=== PATIENT | male | born 1955 | race Caucasian/White ===

== ENCOUNTER 2020-02-10 08:48 | Inpatient (IN) | payer OTHER ==
[~2020-02-10] VITALS: Ht 177.8 cm; Wt 93.9 kg
[2020-02-10 09:04] VITALS: BP 168/111
[2020-02-10] MEDS ORDERED: NORVASC 2.5 MG2.5 M1 PO (09:08)
[2020-02-10] MEDS ORDERED: LISINOPRIL2.5 MG PO (09:08)
[2020-02-10] MEDS ORDERED: ZETIA10 MG PO ×2 (09:09→15:27)
[2020-02-10] MEDS ORDERED: SOTALOL 120 MG120 M1 PO ×2 (09:09→15:26)
[2020-02-10] MEDS ORDERED: SIMVASTATIN80 MG PO (09:09)
[2020-02-10] MEDS ORDERED: ZOFRAN ODT4 MG DISSOLVE (09:09)
[2020-02-10] MEDS ORDERED: FAMOTIDINE20 MG PO (09:09)
[2020-02-10 09:31] LABS: ABSOLUTE BASOPHILS 0.1 thou/uL (0.0-0.2); ABSOLUTE EOSINOPHILS 0.1 thou/uL (0.0-0.7); ABSOLUTE LYMPHOCYTES 2.1 thou/uL (0.8-5.3); ABSOLUTE MONOCYTES 0.6 thou/uL (0.0-1.2); ABSOLUTE NEUTROPHILS 4.9 thou/uL (1.6-8.1); BASOPHILS 1.1 %; EOSINOPHILS 1.1 %; HEMATOCRIT 46.4 % (42.0-52.0); HEMOGLOBIN 15.6 gm/dL (14.0-18.0); LYMPHOCYTES 27.3 %; MCH 30.5 pg (26.0-34.0); MCHC 33.6 g/dL (28.0-37.0); MCV 90.7 fL (80.0-100.0); MONOCYTES 7.6 %; MPV 7.3 fl. (7.2-11.1); NUCLEATED RBCS 0 /100WBC; PLATELET COUNT* 239 thou/uL (150-400); POLYS 62.9 %; RBC 5.12 mil/uL (4.50-6.00); RDW-CV 12.8 % (10.5-14.5); WBC 7.7 thou/uL (4.0-11.0)
[2020-02-10 09:49] LABS: CALCIUM 9.3 mg/dL (8.5-10.1); CREATININE 1.2 mg/dL (0.6-1.3); POTASSIUM 3.6 mmol/L (3.5-5.1)
[2020-02-10 09:53] LABS: ALBUMIN 4.5 g/dL (3.4-5.0); MAGNESIUM 2.6 mg/dL (1.8-2.4); TOTAL PROTEIN 8.8 g/dL (6.4-8.2)
--- NOTE | 2020-02-10 14:30 | EKG ---
[place] [address] ELECTROCARDIOGRAM REPORT Name: TIGRE NAVARRO Room: 229-P ADM IN M.R.#: [id number] Admission: 02/10/20 Attend Phys: Scott Rudd Discharge: Date of : 57 Date of Service: 02/10/20906 Report #: [id number] THIS REPORT FOR: //name// [facility] ED Test Date: 2020-02-10 Test Time: 09:07:08 Pat Name: TIGRE NAVARRO Department: Room: [facility] Gender: M Transcription Typist: CCD : [id number] Requested By: Sony Lin Order Number: [id number] MD: Logan Redd Measurements Intervals [place] Rate: 107 P: NM: QRS: -29 QRSD: 136 T: 40 QT: 395 QTc: 527 Interpretive Statements Atrial fibrillation Right bundle branch block Left ventricular hypertrophy with repolarization changes left axis No previous ECG available for comparison Electronically Signed On 02-10-2020 14:30:28 CDT by Logan Redd [email or web address] <ELECTRONICALLY SIGNED> By: Logan Redd MD, FACC 02/10/20 1430 0907 [id number] Logan Redd MD, [facility] /EPI
[2020-02-10 14:38] VITALS: BP 106/62
[2020-02-10 15:07] VITALS: BP 96/62
[2020-02-10] MEDS ORDERED: ROSUVASTATIN CA10 MG PO (15:28)
[2020-02-10] MEDS ORDERED: B-125000 MC1 PO (15:31)
[2020-02-10] MEDS ORDERED: BENADRYL25 MG PO (15:32)
[2020-02-10] MEDS ORDERED: RED YEAST RICE600 M1 PO (15:36)
[2020-02-10] MEDS ORDERED: ONE DAILY WOME1 EAC3 PO (15:38)
[2020-02-10 16:00] VITALS: BP 111/62
[2020-02-10 20:00] VITALS: BP 100/62
[2020-02-11 00:07] VITALS: BP 126/72
[2020-02-11 02:06] LABS: GLYCOHEMOGLOBIN (HGB A1C) 6.2 % (4.8-5.6)
[2020-02-11 04:27] VITALS: BP 105/75
[2020-02-11 07:45] VITALS: BP 132/92
[2020-02-11 11:39] VITALS: BP 110/74
--- NOTE | 2020-02-11 12:43 | CARDNUC ---
[place] [address] CARDIAC NUCLEAR IMAGING REPORT Name: TIGRE NAVARRO Room: [address] IN [facility].#: [id number] Admission: 02/10/20 Attend Phys: Scott Rudd Discharge: Date of : 57 Date of Service: 02/11/20 1243 Report #: [id number] THIS REPORT FOR: cc: Carlie Epstein Maggie M. DO Liston,Nawaf Talley MD [facility] ~ APPROVED REPORT Imaging Protocol: Stress Tc-99m/Rest Tc-99m 1 day Study performed: 02/10/2020 14:59:00 Indication: Chest pain, left arm pain, AFib, RVR, Palpitations, Nausea. Patient Location: In-Patient Room #: 229 Stress Tech: Marietta Martinez Stress Nurse: Shiela Neri RN Ht: 5 ft 10 in Wt: 220 lbs BSA: 2.17 m2 BMI: 31.56 Medical History Medical History: Angina, Arrhythmia, Atrial Fibrillation, CAD non obstructive, Borderline DM, HTN, Hyperlipidemia, RBBB, Ablation, RVR, PVC's, elevated calcium score, ABD pain/GI pain, nausea, Palpitations, LVH, Groin pain, Anxiety, Spinal Stenosis, knee surgery. Medications: Diltiazem/Cardizem, Home meds include Amlodipine, Zetia, Lisinopril, Red Yeast Rice, Rosuvastatin, Sotalol. Allergies: No known drug allergies Cardiac Risk Factors: Age, Borderline DM, HTN, Hyperlipidemia, AFib, RVR, elevated calcium score, RBBB, LVH, PVC's. Previous Cardiac Procedures: Ablation for AFib. Pretest Chest Pain Characteristics: No chest pain Exercise History: Indeterminate Physical Disabilities: AFib, Spinal Stenosis, Knee pain. Meds Held (24 hrs): Sotalol, Amlodipine - All home medications. Resting Data Rest SPECT myocardial perfusion imaging was performed in supine position 30 minutes following the intravenous injection of 10.3 mCi of Tc-99m Sestamibi. Time of rest injection: 07:50 [place] [address] CARDIAC NUCLEAR IMAGING REPORT Name: TIGRE NAVARRO Room: [address]#: [id number] Admission: 02/10/20 Attend Phys: Scott Rudd Discharge: Date of : 57 Date of Service: 02/11/20 1243 Report #: [id number] The images were gated to evaluate regional wall motion and calculate left ventricular ejection fraction. Administration Route: IV Administration Site: Right Arm Pharmacologic Stress Pharmacologic stress test was performed by injecting Regadenoson 0.4 mg IV push over 10-15 seconds immediately followed by the intravenous injection of 35.2 mCi of Tc-99m Sestamibi. Time of stress injection: 09:30 Administration Route: IV Administration Site: Right Arm Heart Rate at time of stress injection: 164 bpm. Gated Stress SPECT was performed 40 minutes after stress injection. The images were gated to evaluate regional wall motion and calculate left ventricular ejection fraction. Prone imaging was performed. Stress Test Details Stress Test: Pharmacologic stress testing performed using 0.4 mg of regadenoson per 5 mL given IV over 10 seconds. Reason for pharmacologic stress test: AFib, Spinal Stenosis, Knee pain.. HR Max Heart Rate (APMHR): 157 bpm Resting HR: 118 bpm Target HR (85% APMHR): 133 bpm Max HR Achieved: 164 bpm % of APMHR: 104 Recovery HR: 140 bpm BP Resting BP: 129/101 mmHg Max BP: 135/85 mmHg Recovery BP: 119/77 mmHg ECG Resting ECG: Atrial fibrillation with rapid ventricular response rate, right bundle branch block Stress ECG: Atrial fibrillation with rapid ventricular response rate, right bundle branch block ST Change: None Recovery ECG: Atrial fibrillation with rapid ventricular response rate, right bundle branch block Recovery ST Change: [place] [address] CARDIAC NUCLEAR IMAGING REPORT Name: TIGRE NAVARRO Room: [address] IN [facility]#: [id number] Admission: 02/10/20 Attend Phys: Scott Rudd Discharge: Date of : 57 Date of Service: 02/11/20 1243 Report #: [id number] Reason for Termination: Completed protocol Stress Symptoms: Warmth/Flushed, Heaviness in LE, Nausea, SOA. Exercise duration: 00 min 00 sec Exercise capacity: 1.00 METs The patient tolerated Lexiscan walking protocol without significant cardiac symptoms. Nurse Comments A 64 year old male inpatient presented with nausea and AFib for a sitting Lexiscan r/t chest pain, left arm pain, AFib, RVR, PVC's, Palpitations, nausea, ABD pain/GI pain and an elevated calcium score. Test well tolerated. Recovery unremarkable. Patient was stable and stated he felt better when escorted via wheelchair to Nuclear Medicine for imaging. Stress ECG Conclusion Baseline twelve-lead EKG shows atrial fibrillation with a rapid ventricular response rate. There is a right bundle branch block. There were no significant ST segment abnormalities noted. EKGs obtained during and post Lexiscan walking protocol show atrial fibrillation with rapid ventricular response rate without significant ST segment changes when compared to baseline. Study Quality Study: Good Artifact: Mild Diaphragmatic artifact Study Data At rest, the left ventricular ejection fraction was 46%.. Post stress, the left ventricular ejection was 46%.. TID = 0.92. Perfusion Perfusion images obtained in the supine position at rest and post walking Lexiscan stress show photopenia in the inferior wall that resolves with post stress prone imaging. There is focal apical thinning. No reversible defects are identified. Wall Motion Mild left ventricular systolic dysfunction noted. There is global hypokinesis and septal wall motion abnormality likely due to underlying bundle branch block. Nuclear Conclusion ECG Findings: [place] [address] CARDIAC NUCLEAR IMAGING REPORT Name: TIGRE NAVARRO Room: [address] IN M.R.#: [id number] Admission: 02/10/20 Attend Phys: Scott Rudd Discharge: Date of : 57 Date of Service: 02/11/20 1243 Report #: [id number] Clinical Findings: negative for ischemia Nuclear Findings: negative for ischemia Exercise Capacity: not assessed Left Ventricular Function: abnormal Perfusion study showed no reversible defects to suggest ischemia. There is mild global LV systolic dysfunction. This is not a high risk study. <Conclusion> Baseline twelve-lead EKG shows atrial fibrillation with a rapid ventricular response rate. There is a right bundle branch block. There were no significant ST segment abnormalities noted. EKGs obtained during and post Lexiscan walking protocol show atrial fibrillation with rapid ventricular response rate without significant ST segment changes when compared to baseline. <ELECTRONICALLY SIGNED> By: Nawaf Blanco MD, FACC 02/11/20 1243 1243 124 Nawaf Blanco MD, FACC /INF
--- NOTE | 2020-02-11 14:15 | 2DMMODE ---
[place] [address] 2 D/M-MODE ECHOCARDIOGRAM Name: TIGRE NAVARRO Room: [address] ADM IN M.R.#: [id number] Admission: 02/10/20 Attend Phys: Scott Rudd Discharge: Date of : 57 Date of Service: 02/11/20 1415 Report #: [id number] THIS REPORT FOR: cc: Carlie Epstein Maggie M. DO Blick,Logan Ely MD [facility] ~ APPROVED REPORT Study performed: 02/11/2020 12:53:44 EXAM: Comprehensive 2D, Doppler, and color-flow Echocardiogram Patient Location: Bedside BSA: 2.12 HR: 60 bpm BP: 105/75 mmHg Other Information Study Quality: Adequate Indications Atrial Fibrillation 2D Dimensions IVSd: 13.07 (7-11mm) LVOT Diam: 22.23 (18-24mm) LVDd: 53.89 mm PWd: 12.20 (7-11mm) Ascending Ao: 34.67 (22-36mm) LVDs: 36.69 (25-40mm) Aortic Root: 33.49 mm Volumes Left Atrial Volume (Systole) LA ESV Index: 26.50 mL/m2 Aortic Valve AoV Peak Malvin.: 1.13 m/s AO Peak Gr.: 5.10 mmHg LVOT Max P.04 mmHg AO Mean Gr.: 2.82 mmHg LVOT Mean P.49 mmHg LVOT Max V: 1.00 m/s AO V2 VTI: 20.62 cm LVOT Mean V: 0.54 m/s SAMSON (VTI): 3.78 cm2 LVOT V1 VTI: 20.08 cm Mitral Valve E/A Ratio: 1.28 [place] [address] 2 D/M-MODE ECHOCARDIOGRAM Name: TIGRE NAVARRO Room: [address] IN .R.#: [id number] Admission: 02/10/20 Attend Phys: Scott Rudd Discharge: Date of : 57 Date of Service: 02/11/20 1415 Report #: [id number] MV Decel. Time: 219.63 ms MV E Max Malvin.: 0.53 m/s MV PHT: 63.69 ms MVA (PHT): 3.45 cm2 TDI E/Lateral E': 3.12 E/Medial E': 5.89 Medial E' Malvin.: 0.09 m/s Lateral E' Malvin.: 0.17 m/s Pulmonary Valve PV Peak Malvin.: 0.83 m/s PV Peak Gr.: 2.73 mmHg Tricuspid Valve RAP Estimate: 5.00 mmHg TR Peak Gr.: 22.37 mmHg RVSP: 27.37 mmHg PA Pressure: 27.37 mmHg Left Ventricle The left ventricle is normal size. Mild concentric left ventricular hypertrophy. Left ventricular systolic function is normal. The left ventricular ejection fraction is within the normal range. LVEF is 55-60%. Right Ventricle Right ventricle is borderline dilated. The right ventricular systolic function is normal. Atria The left atrium size is normal. The right atrium size is normal. Aortic Valve The Aortic valve is sclerotic. No aortic regurgitation is present. There is no aortic valvular stenosis. Mitral Valve The mitral valve is normal in structure. Mild mitral regurgitation. No evidence of mitral valve stenosis. Tricuspid Valve The tricuspid valve is normal in structure. Trace tricuspid regurgitation. estimated pa pressure 45 mm Hg Pulmonic Valve The pulmonary valve is normal in structure. [place] [address] 2 D/M-MODE ECHOCARDIOGRAM Name: TIGRE NAVARRO Room: [address] IN [facility]#: [id number] Admission: 02/10/20 Attend Phys: Scott Rudd Discharge: Date of : 57 Date of Service: 02/11/20 1415 Report #: [id number] valvular regurgitation. Great Vessels The aortic root is normal in size. IVC is normal in size and collapses >50% with inspiration. Pericardium There is no pericardial effusion. <Conclusion> Mild concentric left ventricular hypertrophy. LVEF is 55-60%. The Aortic valve is sclerotic. Mild mitral regurgitation. Trace tricuspid regurgitation. estimated pa pressure 45 mm Hg <ELECTRONICALLY SIGNED> By: Logan Redd MD, FACC 02/11/201414 14 14 Logan Redd MD, FACC /INF
[2020-02-11 16:00] VITALS: BP 110/58
[2020-02-11 20:00] VITALS: BP 149/67
[2020-02-12 00:41] VITALS: BP 121/77
[2020-02-12 04:22] VITALS: BP 110/55
[2020-02-12 08:00] VITALS: BP 133/75
[2020-02-12] MEDS ORDERED: LORAZEPAM 0.50.5 MG PO (08:30)
[2020-02-12] MEDS ORDERED: CARDIZEM CD120 MG PO (08:30)
[2020-02-12] MEDS ORDERED: XARELTO10 MG PO (08:30)
[2020-02-12] MEDS ORDERED: LISINOPRIL2.5 MG PO (09:56)
[2020-02-12 10:26] LABS: CREATININE 1.2 mg/dL (0.6-1.3); MAGNESIUM 2.5 mg/dL (1.8-2.4); POTASSIUM 3.6 mmol/L (3.5-5.1)
[2020-02-12 12:00] VITALS: BP 118/67
[2020-02-12 16:43] VITALS: BP 133/75
--- NOTE | 2020-02-12 17:30 | CON ---
[facility] [address] [place] [address] CONSULTATION Name: TIGRE NAVARRO Room: [address] ADM IN M.R.#: [id number] Admission: 02/10/20 Attend Phys: Al Patricia Discharge: Date of : 57 Report #: [id number] THIS REPORT FOR: //name// cc: Carlie Epstein Maggie M. DO ~ THIS REPORT FOR: //name// DATE OF SERVICE: 02/11/2020 HISTORY OF PRESENT ILLNESS: This is a pleasant 64-year-old male with past medical history significant for hypertension, hyperlipidemia, prediabetes, and atrial fibrillation who presented with worsening nausea. The patient has been diagnosed with atrial fibrillation with rapid ventricular response. The GI service has been consulted for evaluation of nausea. The patient reports nausea daily, worse when he is anxious, sometimes it is worse with food. Denies any abdominal pain, vomiting, hematemesis, hematochezia, weight loss. The patient has never had an EGD done before. PAST MEDICAL HISTORY: Atrial fibrillation, hypertension, prediabetes, hyperlipidemia. PAST SURGICAL HISTORY: He has had ablation, knee surgery in 2013, hemorrhoidectomy, tonsillectomy. SOCIAL HISTORY: The patient denies smoking, alcohol or recreational drug use. FAMILY HISTORY: Unknown because he is adopted. REVIEW OF SYSTEMS: Comprehensive 10-point review of systems is negative except for what was mentioned in the HPI. PHYSICAL EXAMINATION: GENERAL: The patient is alert, awake, oriented x 3. HEENT: Pupils are equal, round, reactive to light and accommodation. Mucous membranes are moist. There is no congestion. LUNGS: Clear to auscultation bilaterally. CARDIOVASCULAR: Irregularly irregular. ABDOMEN: Soft. There is no distention, guarding or rigidity. EXTREMITIES: Warm, well perfused. There is no edema. SKIN: Warm and dry. LABORATORY DATA: Hemoglobin 15.6, hematocrit 46.4, platelet count 239, WBC count 7.7. Sodium 137, potassium 3.6, chloride 99, bicarbonate 27, BUN 17, creatinine 1.2. Hemoglobin A1c is 6.2. IMAGING: Abdomen and pelvis CT demonstrates [place] [address] CONSULTATION Name: TIGRE NAVARRO Room: [address] IN [facility]#: [id number] Admission: 02/10/20 Attend Phys: Al Patricia Discharge: Date of : 57 Report #: [id number] ASSESSMENT AND PLAN: A pleasant 64-year-old gentleman with history of atrial fibrillation who is presenting for evaluation of nausea. The patient had a stress test performed today for his nausea. We would recommend Zofran 8 mg t.i.d. p.r.n. We would avoid anticholinergics as they have the ability to increase heart rate. No further interventions are recommended at this time. Thank you for this consultation. <ELECTRONICALLY SIGNED> By: George Motta MD 02/12/20 1730 1128 [id number] Motta MD /nt
== END 2020-02-12 17:00 | disposition home or self-care (01) | DRG 309 ==
LOC: M.ERS 08:48 → M.2W 11:02 → M.TBA-ER 11:02 → M.2W 14:15
PROVIDERS: Emergency Medicine Emergency Medical Services; ADMIT Internal Medicine; ATTEND Internal Medicine
PROC: 5A09357 Assistance with Respiratory Ventilation, Less than 24 Consecutive Hours, Continuous Positive Airway Pressure (ICD-10-PCS; principal; 2020-02-10)
DX: I48.0 Paroxysmal atrial fibrillation (principal); D68.59 Other primary thrombophilia; I10 Essential (primary) hypertension; E78.5 Hyperlipidemia, unspecified; R73.03 Prediabetes; G62.9 Polyneuropathy, unspecified; E05.90 Thyrotoxicosis, unspecified without thyrotoxic crisis or storm; I25.10 Atherosclerotic heart disease of native coronary artery without angina pectoris; K76.0 Fatty (change of) liver, not elsewhere classified; K64.9 Unspecified hemorrhoids; R07.9 Chest pain, unspecified; F41.9 Anxiety disorder, unspecified; I49.3 Ventricular premature depolarization; Z20.828 Contact with and (suspected) exposure to other viral communicable diseases; Z79.899 Other long term (current) drug therapy; Z23 Encounter for immunization

== ENCOUNTER 2020-03-22 08:07 | Emergency (ER) | payer OTHER ==
[~2020-03-22] VITALS: Ht 177.8 cm; Wt 95.3 kg
[~2020-03-22 08:07] MED LIST: B-125000 MC1 PO; BENADRYL25 MG PO; CARDIZEM CD120 MG PO; FAMOTIDINE20 MG PO; LISINOPRIL2.5 MG PO; LORAZEPAM 0.50.5 MG PO; NORVASC 2.5 MG2.5 M1 PO; ONE DAILY WOME1 EAC3 PO; RED YEAST RICE600 M1 PO; ROSUVASTATIN CA10 MG PO; SIMVASTATIN80 MG PO; SOTALOL 120 MG120 M1 PO; XARELTO10 MG PO; ZETIA10 MG PO; ZOFRAN ODT4 MG DISSOLVE
[2020-03-22] MEDS ORDERED: XARELTO20 MG PO (08:21)
[2020-03-22] MEDS ORDERED: LISINOPRIL20 MG PO (08:21)
[2020-03-22] MEDS ORDERED: NORVASC5 M1 PO (08:21)
[2020-03-22 08:49] LABS: URINE BILIRUBIN NEGATIVE (Negative); URINE BLOOD 2+ (Negative); URINE CLARITY CLEAR; URINE COLOR YELLOW; URINE GLUCOSE-RANDOM NEGATIVE (Negative); URINE KETONES NEGATIVE (Negative); URINE LEUKOCYTES-REFLEX NEGATIVE (Negative); URINE NITRITE-REFLEX NEGATIVE (Negative); URINE PROTEIN NEGATIVE (Negative); URINE UROBILINOGEN 0.2 E.U./dl (0.2-1.0)
[2020-03-22 08:52] LABS: ABSOLUTE BASOPHILS 0.1 thou/uL (0.0-0.2); ABSOLUTE EOSINOPHILS 0.1 thou/uL (0.0-0.7); ABSOLUTE LYMPHOCYTES 1.8 thou/uL (0.8-5.3); ABSOLUTE MONOCYTES 0.6 thou/uL (0.0-1.2); ABSOLUTE NEUTROPHILS 2.9 thou/uL (1.6-8.1); BASOPHILS 1.3 %; EOSINOPHILS 1.2 %; HEMATOCRIT 42.9 % (42.0-52.0); HEMOGLOBIN 14.7 gm/dL (14.0-18.0); LYMPHOCYTES 33.5 %; MCH 30.5 pg (26.0-34.0); MCHC 34.3 g/dL (28.0-37.0); MCV 88.8 fL (80.0-100.0); MONOCYTES 10.8 %; NUCLEATED RBCS 0 /100WBC; PLATELET COUNT* 225 thou/uL (150-400); POLYS 53.2 %; RBC 4.83 mil/uL (4.50-6.00); RDW-CV 12.5 % (10.5-14.5); WBC 5.5 thou/uL (4.0-11.0)
[2020-03-22] MEDS ORDERED: FLEXERIL PO (08:54)
[2020-03-22] MEDS ORDERED: NORCO 5-325 TA1 EAC2 PO (08:54)
[2020-03-22 09:00] LABS: CALCIUM 8.6 mg/dL (8.5-10.1); POTASSIUM 3.5 mmol/L (3.5-5.1)
[2020-03-22 09:05] LABS: ALBUMIN 3.8 g/dL (3.4-5.0); TOTAL BILIRUBIN 0.5 mg/dL (<0.1-1.0); TOTAL PROTEIN 7.9 g/dL (6.4-8.2)
[2020-03-22 09:05] LABS: CRYSTALS None Seen /LPF (None Seen); MUCUS 4-6 Moderate strn/LPF (None Seen); SQUAMOUS NONE SEEN /LPF (0-3)
[2020-03-22 09:06] LABS: BACTERIA-REFLEX None Seen /HPF (None Seen); CASTS None Seen /LPF (None Seen)
[2020-03-22 09:07] LABS: URINE RBC 0-2 Rare /HPF (0-2); URINE WBC-REFLEX None Seen /HPF (0-5)
[2020-03-22] MEDS ORDERED: CIPROFLOXACIN500 M1 PO (09:24)
[2020-03-22] MEDS ORDERED: FLOMAX0.4 MG PO (09:25)
[2020-03-22 09:38] VITALS: BP 144/90
== END 2020-03-22 09:38 | disposition home or self-care (01) ==
LOC: M.ERS 08:07
PROVIDERS: Family Medicine
DX: N41.9 Inflammatory disease of prostate, unspecified (principal); I48.91 Unspecified atrial fibrillation; I10 Essential (primary) hypertension; E78.5 Hyperlipidemia, unspecified; Z90.89 Acquired absence of other organs

== ENCOUNTER 2020-04-11 09:17 | Emergency (ER) | payer OTHER ==
[~2020-04-11] VITALS: Ht 177.8 cm; Wt 93.0 kg
[~2020-04-11 09:17] MED LIST changes: +CIPROFLOXACIN500 M1 PO; +FLEXERIL PO; +FLOMAX0.4 MG PO; +LISINOPRIL20 MG PO; +NORCO 5-325 TA1 EAC2 PO; +NORVASC5 M1 PO; +XARELTO20 MG PO
[2020-04-11 11:24] LABS: ABSOLUTE EOSINOPHILS 0.1 thou/uL (0.0-0.7); ABSOLUTE LYMPHOCYTES 1.6 thou/uL (0.8-5.3); ABSOLUTE MONOCYTES 0.6 thou/uL (0.0-1.2); ABSOLUTE NEUTROPHILS 5.5 thou/uL (1.6-8.1); BASOPHILS 0.6 %; EOSINOPHILS 1.1 %; HEMATOCRIT 45.8 % (42.0-52.0); HEMOGLOBIN 15.2 gm/dL (14.0-18.0); LYMPHOCYTES 20.2 %; MCH 30.2 pg (26.0-34.0); MCHC 33.3 g/dL (28.0-37.0); MCV 90.9 fL (80.0-100.0); MONOCYTES 8.2 %; NUCLEATED RBCS 0 /100WBC; PLATELET COUNT* 216 thou/uL (150-400); POLYS 69.9 %; RBC 5.04 mil/uL (4.50-6.00); RDW-CV 12.8 % (10.5-14.5); WBC 7.9 thou/uL (4.0-11.0)
[2020-04-11 11:31] LABS: URINE BILIRUBIN NEGATIVE (Negative); URINE BLOOD 1+ (Negative); URINE CLARITY CLEAR; URINE COLOR YELLOW; URINE GLUCOSE-RANDOM NEGATIVE (Negative); URINE KETONES NEGATIVE (Negative); URINE LEUKOCYTES-REFLEX NEGATIVE (Negative); URINE NITRITE-REFLEX NEGATIVE (Negative); URINE PROTEIN NEGATIVE (Negative); URINE SPECIFIC GRAVITY 1.025 (1.005-1.030); URINE UROBILINOGEN 0.2 E.U./dl (0.2-1.0)
[2020-04-11 11:33] LABS: CALCIUM 9.1 mg/dL (8.5-10.1); CREATININE 0.9 mg/dL (0.6-1.3); POTASSIUM 3.9 mmol/L (3.5-5.1)
[2020-04-11 11:36] LABS: BACTERIA-REFLEX 1-9 Few /HPF (None Seen); CASTS None Seen /LPF (None Seen); CRYSTALS None Seen /LPF (None Seen); MUCUS 4-6 Moderate strn/LPF (None Seen); SQUAMOUS 4-10 Moderate /LPF (0-3); URINE WBC-REFLEX 0-5 Rare /HPF (0-5)
[2020-04-11 11:38] LABS: ALBUMIN 3.8 g/dL (3.4-5.0); TOTAL BILIRUBIN 0.6 mg/dL (<0.1-1.0); TOTAL PROTEIN 7.9 g/dL (6.4-8.2)
[2020-04-11] MEDS ORDERED: BENTYL 20 MG TA20 M1 PO (12:53)
[2020-04-11 13:15] VITALS: BP 151/96
== END 2020-04-11 13:15 | disposition home or self-care (01) ==
LOC: M.ERS 09:17
PROVIDERS: Personal Emergency Response Attendant
DX: K59.00 Constipation, unspecified (principal); I10 Essential (primary) hypertension; E78.5 Hyperlipidemia, unspecified; I48.91 Unspecified atrial fibrillation; Z90.89 Acquired absence of other organs

== ENCOUNTER 2020-04-19 09:51 | Emergency (ER) | payer OTHER ==
[~2020-04-19] VITALS: Ht 177.8 cm; Wt 131.5 kg
[~2020-04-19 09:51] MED LIST changes: +BENTYL 20 MG TA20 M1 PO
[2020-04-19 10:18] LABS: ABSOLUTE BASOPHILS 0.1 thou/uL (0.0-0.2); ABSOLUTE EOSINOPHILS 0.1 thou/uL (0.0-0.7); ABSOLUTE LYMPHOCYTES 1.8 thou/uL (0.8-5.3); ABSOLUTE MONOCYTES 0.5 thou/uL (0.0-1.2); ABSOLUTE NEUTROPHILS 4.9 thou/uL (1.6-8.1); BASOPHILS 1.2 %; HEMATOCRIT 46.2 % (42.0-52.0); HEMOGLOBIN 15.6 gm/dL (14.0-18.0); LYMPHOCYTES 24.1 %; MCH 30.4 pg (26.0-34.0); MCHC 33.8 g/dL (28.0-37.0); MCV 89.9 fL (80.0-100.0); MONOCYTES 7.4 %; NUCLEATED RBCS 0 /100WBC; PLATELET COUNT* 231 thou/uL (150-400); POLYS 66.3 %; RBC 5.14 mil/uL (4.50-6.00); RDW-CV 12.7 % (10.5-14.5); WBC 7.4 thou/uL (4.0-11.0)
[2020-04-19 10:30] LABS: CALCIUM 9.2 mg/dL (8.5-10.1); POTASSIUM 3.8 mmol/L (3.5-5.1)
[2020-04-19 10:31] LABS: INR 1.2; PROTIME 12.3 Seconds (9.20-11.50)
[2020-04-19 10:36] LABS: ALBUMIN 4.1 g/dL (3.4-5.0); TOTAL BILIRUBIN 0.6 mg/dL (<0.1-1.0); TOTAL PROTEIN 8.2 g/dL (6.4-8.2)
[2020-04-19] MEDS ORDERED: ZOFRAN ODT4 MG SUBLING (11:35)
[2020-04-19 11:47] VITALS: BP 138/75
--- NOTE | 2020-04-19 15:15 | EKG ---
[place] [address] ELECTROCARDIOGRAM REPORT Name: TIGRE NAVARRO Room: [facility]#: [id number] Admission: 04/19/20 Attend Phys: Discharge: 04/19/20 Date of : 57 Date of Service: 04/19/20 1026 Report #: [id number] THIS REPORT FOR: //name// [facility] ED Test Date: 2020-04-19 Test Time: 10:26:30 Pat Name: TIGRE NAVARRO Department: Room: Gender: [employer]: [facility] : 1955 Requested By: Manny Rod Order Number: [id number] MD: oTrey Tsai Measurements Intervals [place] Rate: 57 P: 22 NC: 138 QRS: -29 QRSD: 139 T: 11 QT: 511 QTc: 498 Interpretive Statements Sinus rhythm IVCD, consider atypical RBBB Left ventricular hypertrophy Compared to ECG 02/10/2020 09:07:08 Atrial fibrillation no longer present Electronically Signed On 04-19-2020 15:14:52 [employer] by Torey Tsai [email or web address] <ELECTRONICALLY SIGNED> By: Torey Tsai MD, FAC 04/19/20 1514 1026 1026 Torey Tsai MD, [facility] /EPI
== END 2020-04-19 11:47 | disposition home or self-care (01) ==
LOC: M.ERS 09:51
PROVIDERS: Family Medicine
DX: R10.84 Generalized abdominal pain (principal); I48.91 Unspecified atrial fibrillation; I10 Essential (primary) hypertension; E78.5 Hyperlipidemia, unspecified; Z90.89 Acquired absence of other organs

== ENCOUNTER → 2021-04-20 | Outpatient (CLI) | payer OTHER ==
[~2021-04-20] MED LIST changes: +ZOFRAN ODT4 MG SUBLING
== END ==
LOC: M.LAB 09:58
PROVIDERS: ATTEND Internal Medicine Gastroenterology
DX: Z01.812 Encounter for preprocedural laboratory examination (principal); Z20.822 Contact with and (suspected) exposure to COVID-19